=== PATIENT | male | born 1980 | race Caucasian/White ===

== ENCOUNTER 2017-09-15 06:58 | Emergency (ER) | payer OTHER ==
[2017-09-15] MEDS ORDERED: OMEP10SU2 PO (08:44)
[2017-09-15] MEDS ORDERED: HYDR10TA4 PO (08:45)
== END 2017-09-15 07:35 | disposition left against medical advice (07) ==
LOC: ED 07:28
DX: Z53.21 Procedure and treatment not carried out due to patient leaving prior to being seen by health care provider (principal)

== ENCOUNTER 2017-09-15 07:24 | Emergency (ER) | payer OTHER ==
[~2017-09-15] VITALS: Ht 188 cm; Wt 90.5 kg
[2017-09-15 07:25] VITALS: BP 118/80
[2017-09-15] MEDS ORDERED: OMEP10SU2 PO (08:44)
[2017-09-15] MEDS ORDERED: HYDR10TA4 PO (08:45)
[2017-09-15] MEDS ORDERED: HYDROcodone/APAP 5/325 TABLET ONE (08:53)
[2017-09-15 08:54] LABS: BASOPHILS # (AUTO) 0.05 x10^3/uL (0-0.1); BASOPHILS % (AUTO) 1 % (0-1); EOSINOPHILS # (AUTO) 0.12 x10^3/uL (0-0.4); EOSINOPHILS % (AUTO) 2 % (1-7); LYMPHOCYTES % (AUTO) 33 % (22-44); MD NO; MEAN CORPUSCULAR HEMOGLOBIN 32.5 pg (27.5-34.5); MEAN CORPUSCULAR HGB CONC 34.4 g/dL (33.2-36.2); MEAN CORPUSCULAR VOLUME 94.4 fL (81-97); MEAN PLATELET VOLUME 7.4 fL (7.4-10.4); MONOCYTES # (AUTO) 0.49 x10^3/uL (0.2-0.8); MONOCYTES % (AUTO) 9 % (2-9); NEUTROPHILS % (AUTO) 56 % (42-75); PLATELET COUNT 244 x10^3/uL (130-400); RED BLOOD COUNT 4.67 x10^6/uL (4.38-5.82); RED CELL DISTRIBUTION WIDTH 13.3 % (9.4-14.8)
[2017-09-15] MEDS ORDERED: HYDROcodone/APAP 5/325 TABLET PO ONE (09:00)
[2017-09-15 11:06] LABS: MICROSCOPIC NOT IND
[2017-09-15 11:10] LABS: CULTURE INDICATED? NO
== END 2017-09-15 11:49 | disposition home or self-care (01) ==
LOC: ED 10:51
DX: K40.90 Unilateral inguinal hernia, without obstruction or gangrene, not specified as recurrent (principal); F17.210 Nicotine dependence, cigarettes, uncomplicated
CPT/HCPCS: 36415; 76870; 81003; 85025; 99285

== ENCOUNTER 2017-10-15 18:08 | Emergency (ER) | payer SELFPAY ==
[~2017-10-15] VITALS: Ht 188 cm; Wt 90.0 kg
[~2017-10-15 18:08] MED LIST: HYDR10TA4 PO; OMEP10SU2 PO
[2017-10-15 18:53] LABS: BASOPHILS # (AUTO) 0.03 x10^3/uL (0-0.1); BASOPHILS % (AUTO) 0 % (0-1); EOSINOPHILS # (AUTO) 0.02 x10^3/uL (0-0.4); EOSINOPHILS % (AUTO) 0 % (1-7); LYMPHOCYTES % (AUTO) 26 % (22-44); MD NO; MEAN CORPUSCULAR HEMOGLOBIN 32.9 pg (27.5-34.5); MEAN CORPUSCULAR HGB CONC 34.9 g/dL (33.2-36.2); MEAN CORPUSCULAR VOLUME 94.3 fL (81-97); MEAN PLATELET VOLUME 7.4 fL (7.4-10.4); MONOCYTES # (AUTO) 0.75 x10^3/uL (0.2-0.8); MONOCYTES % (AUTO) 10 % (2-9); NEUTROPHILS # (AUTO) 4.76 x10^3/uL (1.8-6.8); NEUTROPHILS % (AUTO) 64 % (42-75); PLATELET COUNT 264 x10^3/uL (130-400); RED BLOOD COUNT 4.58 x10^6/uL (4.38-5.82); RED CELL DISTRIBUTION WIDTH 13.2 % (9.4-14.8)
[2017-10-15 19:02] LABS: ALANINE AMINOTRANSFERASE 33 U/L (12-78); ALBUMIN 4.6 g/dL (3.4-5.0); ANION GAP 10 mmol/L (5-15); CALCIUM 9.8 mg/dL (8.5-10.1); CHLORIDE 102 mmol/L (98-107)
[2017-10-15 19:04] LABS: ALKALINE PHOSPHATASE 74 U/L (45-117); BILIRUBIN,TOTAL 0.8 mg/dL (0.2-1.0); TOTAL PROTEIN 8.4 g/dL (6.4-8.2)
[2017-10-15] MEDS ORDERED: MAALOX/HYOSCYAMINE/LIDOCAINE 45 ML BTL PO ONE (19:30)
[2017-10-15] MEDS ORDERED: MAALOX/HYOSCYAMINE/LIDOCAINE 45 ML BTL ONE (19:32)
[2017-10-15 19:40] LABS: TROPONIN I < 0.015 ng/mL (0.000-0.045)
[2017-10-15] MEDS ORDERED: LORazepam 2 MG/ML, 1ML ONE (19:59)
[2017-10-15] MEDS ORDERED: LORazepam 2 MG/ML, 1ML IVPush ONE (20:00)
[2017-10-15] MEDS ORDERED: SODIUM CHLORIDE 0.9% 1,000ML IVBOLUS ONE (20:00)
[2017-10-15 21:41] LABS: TROPONIN I < 0.015 ng/mL (0.000-0.045)
[2017-10-15 22:05] VITALS: BP 143/101
== END 2017-10-15 22:17 | disposition home or self-care (01) ==
LOC: ED 19:52
DX: K29.00 Acute gastritis without bleeding (principal); K20.9 Esophagitis, unspecified; R07.2 Precordial pain; I25.2 Old myocardial infarction; F17.200 Nicotine dependence, unspecified, uncomplicated
CPT/HCPCS: 36415; 71045; 80053; 83690; 84484; 85025; 93005; 96361; 96374; 99285; J2060; J7030

== ENCOUNTER 2018-02-03 17:43 | Emergency (ER) | payer OTHER ==
[~2018-02-03] VITALS: Ht 188 cm; Wt 95.1 kg
[2018-02-03] MEDS ORDERED: ASPIRIN 81 MG TABLET CHEW PO ONE (18:00)
[2018-02-03] MEDS ORDERED: ASPIRIN 81 MG TABLET CHEW ONE (18:06)
[2018-02-03 18:09] LABS: BASOPHILS # (AUTO) 0.03 x10^3/uL (0-0.1); BASOPHILS % (AUTO) 1 % (0-1); EOSINOPHILS # (AUTO) 0.09 x10^3/uL (0-0.4); EOSINOPHILS % (AUTO) 1 % (1-7); LYMPHOCYTES # (AUTO) 2.65 x10^3/uL (1-3.4); LYMPHOCYTES % (AUTO) 40 % (22-44); MD NO; MEAN CORPUSCULAR HEMOGLOBIN 32.4 pg (27.5-34.5); MEAN CORPUSCULAR HGB CONC 34.6 g/dL (33.2-36.2); MEAN CORPUSCULAR VOLUME 93.7 fL (81-97); MEAN PLATELET VOLUME 7.8 fL (7.4-10.4); MONOCYTES # (AUTO) 0.62 x10^3/uL (0.2-0.8); MONOCYTES % (AUTO) 9 % (2-9); NEUTROPHILS # (AUTO) 3.19 x10^3/uL (1.8-6.8); NEUTROPHILS % (AUTO) 49 % (42-75); PLATELET COUNT 240 x10^3/uL (130-400); RED BLOOD COUNT 4.81 x10^6/uL (4.38-5.82); RED CELL DISTRIBUTION WIDTH 13.5 % (9.4-14.8)
[2018-02-03 18:16] LABS: ALBUMIN 4.5 g/dL (3.4-5.0); ANION GAP 8 mmol/L (5-15); CALCIUM 9.4 mg/dL (8.5-10.1); CHLORIDE 104 mmol/L (98-107); CREATININE 1.11 mg/dL (0.7-1.3)
[2018-02-03 18:20] LABS: TROPONIN I < 0.015 ng/mL (0.000-0.045)
[2018-02-03 19:25] VITALS: BP 125/88
== END 2018-02-03 19:30 | disposition home or self-care (01) ==
LOC: ED 18:26
DX: R06.00 Dyspnea, unspecified (principal); F15.10 Other stimulant abuse, uncomplicated; F17.200 Nicotine dependence, unspecified, uncomplicated; R09.81 Nasal congestion; R05 Cough; Z87.19 Personal history of other diseases of the digestive system
CPT/HCPCS: 36415; 71045; 80048; 82040; 84484; 85025; 93005; 99284

== ENCOUNTER 2018-03-29 08:50 | Emergency (ER) | payer SELFPAY ==
[~2018-03-29] VITALS: Ht 188 cm; Wt 97.3 kg
[2018-03-29 08:53] VITALS: BP 133/94
--- NOTE | 2018-03-29 09:30 | NUR ---
Pt not in room at this time.
== END 2018-03-29 10:00 | disposition left against medical advice (07) ==
LOC: ED 09:54
DX: R07.9 Chest pain, unspecified (principal); R06.02 Shortness of breath; R11.10 Vomiting, unspecified; Z53.21 Procedure and treatment not carried out due to patient leaving prior to being seen by health care provider
CPT/HCPCS: 93005; 99281

== ENCOUNTER 2018-07-18 21:10 | Emergency (ER) | payer SELFPAY ==
[~2018-07-18] VITALS: Ht 188 cm; Wt 94.0 kg
[2018-07-18 21:14] VITALS: BP 155/99
--- NOTE | 2018-07-18 21:32 | NUR ---
PT. AMBULATED OUT OF ED ROOM 1 AND BACK INTO THE TRIAGE ROOM WITH STEADY GAIT. PT. WALKED OUT THE DOOR OF TRIAGE. SKEIN TIER REPORTED PT. STATES "I AM GOING HOME." WHILE WALKING OUT THE DOOR.
== END 2018-07-18 21:39 | disposition left against medical advice (07) ==
LOC: ED 21:10
DX: R06.02 Shortness of breath (principal); R10.9 Unspecified abdominal pain; Z53.21 Procedure and treatment not carried out due to patient leaving prior to being seen by health care provider

== ENCOUNTER 2018-07-18 22:28 | Emergency (ER) | payer SELFPAY ==
[~2018-07-18] VITALS: Ht 188 cm; Wt 91.9 kg
--- NOTE | 2018-07-18 22:42 | NUR ---
Pt presents to ed c/o n/v and luq abd pain. D/c from here an hour ago w/ instructions. Pt states s/s not better. Pt appears to be in no distress at this time. No emesis noted. Awaiting md assessment.
[2018-07-18] MEDS ORDERED: PROMETHAZINE 25 MG/ML, 1ML ONE (22:56)
[2018-07-18] MEDS ORDERED: PROMETHAZINE 25 MG/ML, 1ML IM ONE (23:00)
[2018-07-18 23:10] LABS: BASOPHILS # (AUTO) 0.04 x10^3/uL (0-0.1); BASOPHILS % (AUTO) 0 % (0-1); EOSINOPHILS % (AUTO) 1 % (1-7); LYMPHOCYTES # (AUTO) 0.97 x10^3/uL (1-3.4); LYMPHOCYTES % (AUTO) 8 % (22-44); MD NO; MEAN CORPUSCULAR HEMOGLOBIN 32.2 pg (27.5-34.5); MEAN CORPUSCULAR HGB CONC 34.2 g/dL (33.2-36.2); MEAN CORPUSCULAR VOLUME 94.3 fL (81-97); MEAN PLATELET VOLUME 7.8 fL (7.4-10.4); MONOCYTES # (AUTO) 0.38 x10^3/uL (0.2-0.8); MONOCYTES % (AUTO) 3 % (2-9); NEUTROPHILS # (AUTO) 11.17 x10^3/uL (1.8-6.8); NEUTROPHILS % (AUTO) 88 % (42-75); PLATELET COUNT 267 x10^3/uL (130-400); RED BLOOD COUNT 4.97 x10^6/uL (4.38-5.82); RED CELL DISTRIBUTION WIDTH 13.3 % (9.4-14.8)
[2018-07-18 23:24] LABS: ALANINE AMINOTRANSFERASE 54 U/L (12-78); ALBUMIN 4.7 g/dL (3.4-5.0); ANION GAP 7 mmol/L (5-15); CALCIUM 9.1 mg/dL (8.5-10.1); CHLORIDE 109 mmol/L (98-107); CREATININE 1.22 mg/dL (0.7-1.3)
[2018-07-18 23:26] LABS: ALKALINE PHOSPHATASE 88 U/L (45-117); BILIRUBIN,TOTAL 0.5 mg/dL (0.2-1.0); TOTAL PROTEIN 8.6 g/dL (6.4-8.2)
--- NOTE | 2018-07-18 23:53 | NUR ---
Pt still puking. made aware.
[2018-07-18] MEDS ORDERED: ONDANSETRON ODT 8 MG ONE (23:54)
--- NOTE | 2018-07-18 23:56 | NUR ---
This rn to start iv. Pt refusing iv at this time. States "i want to see if this will work first" (po anahi)
[2018-07-19] MEDS ORDERED: ONDANSETRON 2MG/ML, 2ML IVPush ONE
[2018-07-19] MEDS ORDERED: ONDANSETRON ODT 8 MG PO ONE
[2018-07-19] MEDS ORDERED: SODIUM CHLORIDE 0.9% 1,000ML IVBOLUS ONE
[2018-07-19 00:14] VITALS: BP 116/60
--- NOTE | 2018-07-19 00:19 | NUR ---
Pt given water and sprite. Able to tolerate thus far.
== END 2018-07-19 02:05 | disposition home or self-care (01) ==
LOC: ED 23:59
DX: R10.12 Left upper quadrant pain (principal); R11.2 Nausea with vomiting, unspecified; K21.9 Gastro-esophageal reflux disease without esophagitis
CPT/HCPCS: 36415; 80053; 83690; 85025; 96372; 99283; J2550; Q0162

== ENCOUNTER 2018-08-09 07:14 | Emergency (ER) | payer OTHER ==
[~2018-08-09] VITALS: Ht 188 cm; Wt 95.1 kg
[2018-08-09 07:16] VITALS: BP 137/80
--- NOTE | 2018-08-09 08:24 | NUR ---
no answer when called for PIT
--- NOTE | 2018-08-09 08:43 | NUR ---
CALLED NO ANSWER
--- NOTE | 2018-08-09 08:50 | NUR ---
CALLED PATIENT NO ANSWER
== END 2018-08-09 08:52 | disposition left against medical advice (07) ==
LOC: ED 08:46
DX: M79.671 Pain in right foot (principal); Z53.21 Procedure and treatment not carried out due to patient leaving prior to being seen by health care provider

== ENCOUNTER 2019-04-22 06:02 | Emergency (ER) | payer OTHER ==
[~2019-04-22] VITALS: Ht 185.4 cm; Wt 87.2 kg
[~2019-04-22 06:02] MED LIST changes: +HYDR-2995 PO; -HYDR10TA4 PO
[2019-04-22] MEDS ORDERED: METOCLOPRAMIDE 5 MG/ML, 2ML IVPush ONE (06:30)
[2019-04-22] MEDS ORDERED: SODIUM CHLORIDE 0.9% 1,000ML IVBOLUS ONE (06:30)
[2019-04-22] MEDS ORDERED: SODIUM CHLORIDE FLUSH 10ML SYR IVF ONE (06:30)
[2019-04-22] MEDS ORDERED: METHYLNALTREXONE 12 MG/0.6 ML SYR SQ ONE ×2 (06:30→06:51)
[2019-04-22] MEDS ORDERED: KETOROLAC 30 MG/1 ML IVPush ONE (06:30)
[2019-04-22] MEDS ORDERED: PANTOPRAZOLE 40 MG IV IVPush SCH (06:30)
[2019-04-22] MEDS ORDERED: OLAN10TA9 PO (06:31)
[2019-04-22] MEDS ORDERED: DIAZ10TA PO (06:31)
[2019-04-22] MEDS ORDERED: SUBOXONE (06:31)
[2019-04-22] MEDS ORDERED: ESCI20TA10 PO (06:31)
--- NOTE | 2019-04-22 06:31 | NUR ---
PT BIB BY [facility] FROM [facility], BEING RELEASED TODAY, HAS BEEN THERE SINCE 04/16/19 FOR DETOX FROM [facility], STAFF REPORTS NO BM FOR 6 DAYS, STATED THAT THEY HAD GIVEN MIRILAX 2000 LAST NIGHT, MOM AND MAGNESIUM CITRATE 2 DAYS AGO. STAFF REPORTED THAT HE VOMITED "MELONIC" EMESIS THIS AM AND HIS ABD IS HARD AND DISTENDED.
--- NOTE | 2019-04-22 06:47 | NUR ---
RECEIVED REPORT FROM [facility]
[2019-04-22] MEDS ORDERED: PANTOPRAZOLE 40 MG IV ONE (06:51)
[2019-04-22] MEDS ORDERED: METOCLOPRAMIDE 5 MG/ML, 2ML ONE (06:51)
[2019-04-22] MEDS ORDERED: KETOROLAC 30 MG/1 ML ONE (06:51)
--- NOTE | 2019-04-22 06:56 | NUR ---
Petersen cath inserted. Pt continues to be drowsy.
[2019-04-22] MEDS ORDERED: PINK LADY ENEMA 490 ML BOTTLE PR ONE (07:30)
[2019-04-22 07:39] LABS: ALANINE AMINOTRANSFERASE 39 U/L (12-78); ALBUMIN 3.7 g/dL (3.4-5.0); ANION GAP 2 mmol/L (5-15); CALCIUM 8.9 mg/dL (8.5-10.1); CHLORIDE 103 mmol/L (98-107); CREATININE 1.12 mg/dL (0.7-1.3)
[2019-04-22 07:42] LABS: ALKALINE PHOSPHATASE 111 U/L (45-117); BILIRUBIN,TOTAL 0.3 mg/dL (0.2-1.0); TOTAL PROTEIN 7.5 g/dL (6.4-8.2)
[2019-04-22 07:44] LABS: BASOPHILS # (AUTO) 0.01 x10^3/uL (0-0.1); BASOPHILS % (AUTO) 0 % (0-1); EOSINOPHILS # (AUTO) 0.05 x10^3/uL (0-0.4); EOSINOPHILS % (AUTO) 0 % (1-7); LYMPHOCYTES % (AUTO) 7 % (22-44); MD NO; MEAN CORPUSCULAR HEMOGLOBIN 31.7 pg (27.5-34.5); MEAN CORPUSCULAR HGB CONC 33.7 g/dL (33.2-36.2); MEAN CORPUSCULAR VOLUME 93.9 fL (81-97); MEAN PLATELET VOLUME 7.7 fL (7.4-10.4); MONOCYTES % (AUTO) 8 % (2-9); NEUTROPHILS # (AUTO) 9.94 x10^3/uL (1.8-6.8); NEUTROPHILS % (AUTO) 84 % (42-75); PLATELET COUNT 230 x10^3/uL (130-400); RED BLOOD COUNT 4.43 x10^6/uL (4.38-5.82); RED CELL DISTRIBUTION WIDTH 13.4 % (9.4-14.8)
--- NOTE | 2019-04-22 08:26 | NUR ---
PT REMAINS DROWSY BUT CONVERSING. STATES HE HAS WAVES OF SHARP ABDOMINAL PAIN. UOB AND TO W/C. PT STATES HE FEELS LIKE HE NEEDS A BM.
[2019-04-22 08:33] LABS: MICROSCOPIC AUTO
[2019-04-22 08:36] LABS: CULTURE INDICATED? NO
[2019-04-22] MEDS ORDERED: MAGNESIUM CITRATE 300ML ORAL SOL PO ONE (09:30)
--- NOTE | 2019-04-22 09:37 | NUR ---
MD AWARE THAT PT HAS HAD A BOWEL MOVEMENT. NO ENEMA TO BE GIVEN AT THIS TIME. PT BACK IN BED WITH AT BEDSIDE
--- NOTE | 2019-04-22 09:59 | NUR ---
Note sheba in EDM - 04/22/19 at 1000 by CWHELCHEL BREAK RN: REPORTS PT IS UP TO BR AND HAVING SMALL BM'S.
--- NOTE | 2019-04-22 10:01 | NUR ---
BREAK RN: REPORTS PT IS UP TO BR AND HAVING SMALL BM'S.
[2019-04-22] MEDS ORDERED: DIAZEPAM 5 MG TABLET PO ONE (10:30)
[2019-04-22] MEDS ORDERED: DIAZEPAM 5 MG TABLET ONE (10:35)
--- NOTE | 2019-04-22 10:39 | NUR ---
enema and mag citrate not given because pt has had multiple bowel movements. pt given valium to prevent w/d
[2019-04-22 10:40] VITALS: BP 115/72
--- NOTE | 2019-04-22 10:40 | NUR ---
ennis catheter removed after balloon deflated. pt tolerated well.
== END 2019-04-22 11:13 | disposition home or self-care (01) ==
LOC: ED 10:02
DX: K59.00 Constipation, unspecified (principal); R33.9 Retention of urine, unspecified; K21.9 Gastro-esophageal reflux disease without esophagitis; R11.2 Nausea with vomiting, unspecified; F17.200 Nicotine dependence, unspecified, uncomplicated
CPT/HCPCS: 36415; 74018; 80053; 81001; 83690; 85025; 96361; 96372; 96374; 96375; 99284; C9113; J1885; J2765; J7030